=== PATIENT | male | born 1935 | race African-American/Black ===

== ENCOUNTER 2020-01-04 18:11 | Inpatient (IN) ==
[2020-01-04] MEDS ORDERED: ASPIRIN PO ONE (19:20)
--- NOTE | 2020-01-04 19:55 | Diag Imaging Result Doc PS360 ---
EXAM: CHEST-2 VIEWS - 01/04/2020 HISTORY: SOB TECHNIQUE: Chest two views COMPARISON: None. FINDINGS: There is cardiomegaly. There are COPD changes with mildly hyperexpanded lungs. There is apparent mild infiltrate at the posterior base of chest. There is a tiny right pleural effusion. IMPRESSION: Cardiomegaly. COPD. Mild infiltrate at posterior base of chest. Tiny right pleural effusion. Electronically signed by Percy Rodriguez 01/04/2020 7:52 PM
[2020-01-04 20:04] LABS: INR 1.06
[2020-01-04 20:05] LABS: PTT 29.9 Seconds (22.3-41.8)
[2020-01-04 20:06] LABS: BASO# 0.01 X1000 (0.0-0.2); BASO% 0.1 % (0.0-0.8); EOS# 0.03 X1000 (0.0-0.7); EOS% 0.4 % (0.0-10.0); HEMATOCRIT 43.2 % (42.0-52.0); HEMOGLOBIN 13.8 g/dL (14.0-18.0); LYMPH# 1.62 X1000 (1.2-3.4); LYMPH% 24.2 % (20.5-51.1); MCH 28.3 PG (27-31); MCHC 31.9 g/dL (33-37); MCV 88.7 FL (81-99); MONO# 0.69 X1000 (0.11-0.59); MONO% 10.3 % (1.7-9.3); MPV 11.7 FL (7.4-10.4); NEUT# 4.34 X1000 (1.4-6.5); PLT 146 X1000 (130-400); RBC 4.87 XMIL (4.7-6.1); RDW 17.8 % (11.5-14.5); WBC 6.69 X1000 (4.8-10.8)
[2020-01-04 20:22] LABS: AGAP 11; ALB/GLOB RATIO 1.2; ALBUMIN 3.7 g/dL (3.5-5.0); ALKALINE PHOSPHATASE 105 U/L (32-122); BUN 23 mg/dL (8-22); CALCIUM 8.4 mg/dL (8.8-10.2); CHLORIDE 104 mmol/L (98-107); COSMO 287; CREATININE 0.9 mg/dL (0.7-1.2); ESTIMATED GFR > 60; GLUCOSE 103 mg/dL (70-104); GOT 43 U/L (10-34); GPT 45 U/L (10-44); POTASSIUM 4.7 mmol/L (3.5-5.1); SODIUM 142 mmol/L (136-145); TCO2 27 mmol/L (25-35); TOTAL BILIRUBIN 0.33 mg/dL (0.20-1.00); TOTAL PROTEIN 6.8 g/dL (6.3-8.3)
[2020-01-04 20:23] LABS: CK PROFILE 276 U/L (24-204)
[2020-01-04] MEDS ORDERED: LASIX IV ONE (20:27)
[2020-01-04] MEDS ORDERED: LEVAQUIN 500 MG/D5W 500 MG/100 ML IVPB IV ONE (20:34)
--- NOTE | 2020-01-04 20:40 | PROVIDER DOCUMENTATION ---
This chart was entered by Carly Borrego Scribe, acting as scribe for Russ Alatorre MD. HPI-Respiratory General - General Chief Complaint: Edema Stated Complaint: EDEMA, SHAKING, BACK PAIN Time Seen by Provider: 01/04/20 20:21 Source: patient - History of Present Illness-Resp Nature of Presenting Problem: 84 yobm presents w/family to er w/cc sob and bilat LE edema starting . pt has never had edema before. pt also reports urinary freq w/very little output ongoing for few weeks. pt pcp is Dr. Esparza and sts he has not been to see him in about 7 yrs. denies medical hx. no allergies. pt quit smoking 3 months ago. Quality of Pain: reports: none Severity in ED: reports: mild Onset/Duration: reports: 4 days ago, other (urinary freq and little output started few weeks ago.) Timing: reports: still present Exposure: reports: unknown cause Cough Quality/Degree: reports: no cough Current Respiratory Medication Therapy: Initiated none Modifying Factors: improves with: nothing Associated Symptoms: reports: shortness of breath, other (BLE edema) Similar Symptoms Previously?: No Review of Systems - Adult - REVIEW OF SYSTEMS - ADULT Constitutional: reports: no symptoms reported. denies: fever, fatique, night sweats Eyes: reports: no symptoms reported Ears, Nose, Mouth & Throat: reports: no symptoms reported Cardiovascular: reports: see HPI, edema (bilat LE). denies: chest pain, palpitations, poor circulation, syncope Respiratory: reports: see HPI, shortness of breath. denies: hemoptysis, pleurisy, wheezing Gastrointestinal: reports: no symptoms reported Genitourinary: reports: see HPI, frequency, other (little output) Musculoskeletal: reports: no symptoms reported Integumentary: reports: no symptoms reported Neurological: reports: no symptoms reported Psychiatric: reports: no symptoms reported Endocrine: reports: no symptoms reported Hematologic/Lymphatic: reports: no symptoms reported Allergic/Immunologic: reports: no symptoms reported All Other Systems: Reviewed and Negative Past History - Adult - PAST MEDICAL HISTORY-ADULT Review of Records: reports: Nursing Assessment Review, Medications Reviewed, Social history reviewed & non-contributory. Major Childhood Illnesses: reports: denies history Cardiovascular: reports: denies history Respiratory: reports: denies history Gastrointestinal: reports: denies history Obstetrical/Gynecological: reports: denies history Genitourinary: reports: denies history Musculoskeletal: reports: denies history Neurological: reports: denies history Endocrine/Immune: reports: denies history Other Conditions: reports: denies history - IMMUNIZATION STATUS Childhood Immunizations: See Nurse Assessment Flu Vaccine: See Nurse Assessment - FAMILY HISTORY Family History: reviewed, not pertinent - SOCIAL HISTORY Smoking: quit less than 1 year Substance Use: none/never Physical Exam-General - PHYSICAL EXAM-ADULT Initial Vital Signs Reviewed: Yes - CONSTITUTIONAL General Appearance: alert, no apparent distress. negative: lethargic, slow to respond, obtunded - EYES Eyes: PERRL/EOMI - HEAD, EARS, NOSE, MOUTH & THROAT HENMT: normocephalic/atraumatic, moist mucous membranes - NECK Neck: non-tender, full range of motion, supple, normal inspection - RESPIRATORY Respiratory: chest non-tender, lungs clear, normal breath sounds, no pleuratic chest pain, no respiratory distress, no accessory muscle use. negative: rhonchi, stridor, wheezing - CARDIOVASCULAR Cardiovascular: normal peripheral pulses, regular rate, rhythm, no gallop, no JVD, no murmur, irregularly irregular. negative: no edema, extra beats, friction rub, PMI displaced laterally - GASTROINTESTINAL (ABDOMEN) Abdominal Exam: normal bowel sounds, non tender, soft - LYMPHATIC Lymphatic: no adenopathy - MUSCULOSKELETAL Back Exam: normal inspection Extremity: normal range of motion, non-tender, no calf tenderness, normal capillary refill, pelvis stable, swelling (BLE pitting +2). negative: normal inspection, abnormal NV exam, pulse deficit, slow capillary refill, tenderness Peripheral Pulses: carotid (R): 2+ - SKIN Integumentary: normal color, normal turgor, warm/dry - NEUROLOGIC Neurologic: grossly normal, no motor/sensory deficits - PSYCHIATRIC Psych/Mental Status: normal mood/affect, normal thought content, normal thought process, oriented x 3 Progress - PLAN OF CARE/RESULTS Progress/Plan/Lab Results: Vital Signs - 8 hr 01/04/20 18:40 Temperature 98.3 F Pulse Rate 111 H Respiratory Rate 18 Blood Pressure 154/103 O2 Sat by Pulse Oximetry 95 Laboratory Results - last 24 hr 01/04/20 01/04/20 01/04/20 18:56 18:56 18:56 WBC RBC Hgb Hct MCV MCH MCHC RDW Std Deviation Plt Count MPV Immature Gran % (Auto) Neut % (Auto) Lymph % (Auto) Bell % (Auto) Eos % (Auto) Baso % (Auto) Immature Gran # (Auto) Neut # (Auto) Lymph # (Auto) Bell # (Auto) Eos # (Auto) Baso # (Auto) PT INR PTT (Actin FS) Sodium 142 Potassium 4.7 Chloride 104 Carbon Dioxide 27 Anion Gap 11 BUN 23 H Creatinine 0.9 Estimated GFR/1.73 m2 > 60 BUN/Creatinine Ratio 26 Glucose 103 Calculated Osmolality 287 Calcium 8.4 L Total Bilirubin 0.33 AST 43 H ALT 45 H Alkaline Phosphatase 105 Creatine Kinase 276 H Troponin T High Sens Ekj-A-Sqnwjrlqync Pept 4004 H Total Protein 6.8 Albumin 3.7 Globulin 3.1 Albumin/Globulin Ratio 1.2 Plasma Lactate 1.0 01/04/20 01/04/20 01/04/20 18:56 18:56 18:56 WBC 6.69 RBC 4.87 Hgb 13.8 L Hct 43.2 MCV 88.7 MCH 28.3 MCHC 31.9 L RDW Std Deviation 17.8 H Plt Count 146 MPV 11.7 H Immature Gran % (Auto) 0.0 Neut % (Auto) 65.0 Lymph % (Auto) 24.2 Bell % (Auto) 10.3 H Eos % (Auto) 0.4 Baso % (Auto) 0.1 Immature Gran # (Auto) 0.00 Neut # (Auto) 4.34 Lymph # (Auto) 1.62 Bell # (Auto) 0.69 H Eos # (Auto) 0.03 Baso # (Auto) 0.01 PT 14.0 INR 1.06 PTT (Actin FS) 29.9 Sodium Potassium Chloride Carbon Dioxide Anion Gap BUN Creatinine Estimated GFR/1.73 m2 BUN/Creatinine Ratio Glucose Calculated Osmolality Calcium Total Bilirubin AST ALT Alkaline Phosphatase Creatine Kinase Troponin T High Sens 44 H Ekk-O-Ynkkfsrdecq Pept Total Protein Albumin Globulin Albumin/Globulin Ratio Plasma Lactate Orders Category Date Time Status Cardiac Monitoring DIRECTED Care 01/04/20 19:20 Active NEWS Score 2-4:Order NEWS Lactate Series NOW Care 01/04/20 19:19 Active Oxygen Therapy- ED Nursing DIRECTED Care 01/04/20 19:20 Active Saline Loc NOW Care 01/04/20 19:20 Active CHEST-2 VIEWS [RAD] Stat Exams 01/04/20 19:20 Completed BLOOD CULTURE [BLDCUL] Stat Lab 01/04/20 20:34 Uncollected CBC WITH ELECTRONIC DIFF [HEME] Stat Lab 01/04/20 18:56 Completed CK PROFILE [SP CHEM] Stat Lab 01/04/20 18:56 Results COMPREHENSIVE METABOLIC PANEL [CHEM] Stat Lab 01/04/20 18:56 Results LACTATE, PLASMA [CHEM] Q3H Lab 01/04/20 18:56 Completed LACTATE, PLASMA [CHEM] Q3H Lab 01/04/20 22:30 Uncollected LACTATE, PLASMA [CHEM] Q3H Lab 01/05/20 01:30 Uncollected PRO B-NATRIURETIC PEPTIDE Stat Lab 01/04/20 18:56 Completed PROTIME WITH INR [COAG] Stat Lab 01/04/20 18:56 Completed PTT [COAG] Stat Lab 01/04/20 18:56 Completed TROPONIN T HIGH SENSITIVITY Stat Lab 01/04/20 18:56 Completed UA [URINALYSIS W/POSS RFLX CULT] [URINALYSIS] Stat Lab 01/04/20 20:27 Uncollected Aspirin Med 01/04/20 19:20 Discontinued 325 mg PO NOW ONE Furosemide [Lasix] Med 01/04/20 20:27 Discontinued 40 mg IV NOW ONE Levaquin 500 mg/D5w IV Now Med 01/04/20 20:34 Ordered Levofloxacin 500 mg/D5w [Levaquin 500 mg/D5w] 500 mg in 100 ml IV NOW CP/SOB/Palp >45 yrs of Age Stat Oth 01/04/20 19:20 Ordered EKG [EKG] Stat Ther 01/04/20 19:20 Ordered Result Diagrams: 01/04/20 18:56 01/04/20 18:56 - EKG 1 Time of EKG reading by physician:: 18:51 EKG Read and Signed by:: Russ Alatorre EKG Interpretation (*Must complete 3 of following elements*): Abnormal Rate: 109 Rhythm: Sinus tachycardia w/ PSCs Spade: right QRS: normal TX Interval: normal ST Wave: non-specific ST changes (ST & T wave abnormality, consider inferolaeral ischemia) - XRAY 1 XRAY Study: Chest Impression: Abnormal, See EMR Report (EXAM: CHEST-2 VIEWS - 01/04/2020 HISTORY: SOB TECHNIQUE: Chest two views COMPARISON: None. FINDINGS: There is cardiomegaly. There are COPD changes with mildly hyperexpanded lungs. There is apparent mild infiltrate at the posterior base of chest. There is a tiny right pleural effusion. IMPRESSION: Cardiomegaly. COPD. Mild infiltrate at posterior base of chest. Tiny right pleural effusion. Electronically signed by Percy Rodriguez 01/04/2020 7:52 PM) Comparison with other Films: no prior study - CONSULTS/PCP/HOSPITALIST Notification #1 *Consult/PCP/Hospitalist*: Dr. Almodovar Time Discussed: 20:33 Consult Disposition: Admit (Order levaquin, diaresum and rocehpin for pt) Departure - Departure Date of Disposition Decision: 01/04/20 Time of Disposition Decision: 20:36 DIAGNOSIS: CHF (congestive heart failure), COPD (chronic obstructive pulmonary disease), Edema, SOB (shortness of breath) Disposition: ADMITTED INPATIENT 09 Certified Medical Emergency: Emergent Condition: Fair Referrals and Follow-Ups: Nic Esparza MD [Primary Care Provider] - - Critical Care Note This patient required my direct & personal management of CC.: No Attestation - Physician/ NISH Attestation Patient care was provided by Advanced Practice Provider:: No The physician spent face to face time with patient:: Yes Advanced Practice Provider documentation review:: Supervising physician onsite and consulted in the evaluation and care of this patient. The physician did have a face to face encounter with the patient. This chart was documented by the indicated scribe, (Carly Borrego Scribe) and accurately reflects the services I performed and decisions made by me, Russ Alatorre MD, as attested by the provider's signature.
[2020-01-04 20:43] LABS: CK INDEX 2.3 (0.0-2.5); CK-MB 6.24 ng/mL (0.0-5.0)
--- NOTE | 2020-01-04 20:47 | EKG Report ---
Test Performed on : 01/04/2020 6:51:45 PM Test Reason : SOB Blood Pressure : / mmHG Vent. Rate : 109 BPM Atrial Rate : 109 BPM P-R Int : 162 ms QRS Dur : 104 ms QT Int : 356 ms P-R-T Axes : 083 098 -86 degrees QTc Int : 479 ms Sinus tachycardia. with premature supraventricular complexes. Rightward axis ST & T wave abnormality, consider inferolateral ischemia Abnormal ECG No previous ECGs available Unconfirmed Result
--- NOTE | 2020-01-04 21:39 | HISTORY AND PHYSICAL ---
PRIMARY CARE PHYSICIAN: Dr. Nic Esparza. CHIEF COMPLAINT: Shortness of breath for 4 days. HISTORY OF PRESENTING ILLNESS: An 84-year-old elderly male with a history of COPD, presented to emergency department with 4 days history of having persistent shortness of breath. The patient states that during this time he was also having lower extremity edema. The patient states that he was not feeling well and subsequently had come to the emergency department. At ED he was evaluated. He had laboratories drawn which did show elevated proBNP. His x-rays also were consistent with COPD. Due to his presenting symptoms, he will require admission for further management. At the time of my examination, patient denied any headache, fever, chills, nausea, vomiting, diarrhea, hemoptysis, melena, but complained of shortness of breath and lower extremity edema. PAST MEDICAL HISTORY: Includes COPD. PAST SURGICAL HISTORY: Back surgery, stomach ulcer repair. ALLERGIES: No known drug allergies. CURRENT MEDICATIONS: None. SOCIAL HISTORY: He is a former heavy smoker. He states that he now just smokes Black and Milds occasionally. Denies any history of alcohol or illicit drug use. FAMILY HISTORY: No history of coronary disease. REVIEW OF SYSTEMS: Fourteen point review of system is as in HPI. Other systems negative. PHYSICAL EXAMINATION: GENERAL: Cooperative, friendly male. He is resting comfortably now. VITAL SIGNS: Temperature 98.3 degrees, pulse 111, respiration 18, blood pressure 154/103. HEENT: Atraumatic, normocephalic. Extraocular movements intact. PERRLA. NECK: No masses. CHEST: Scattered wheezes. CARDIOVASCULAR: Regular rate and rhythm. ABDOMEN: Soft. Positive bowel sounds. EXTREMITIES: +1 edema. NEUROLOGIC: He is awake, alert, oriented x3. : No bladder distention. SKIN: Warm. LABORATORIES AND STUDIES: WBC 6.69, hemoglobin 13.8, hematocrit 43.2, platelets 146,000. Sodium 142, potassium 4.7, chloride 104, CO2 is 27, BUN is 23, creatinine 0.9, glucose is 103. ProBNP is 4004. Chest x-ray shows cardiomegaly, COPD, mild infiltrate at the posterior base. ASSESSMENT: This 84-year-old elderly male with a history of chronic obstructive pulmonary disease had presented to emergency department with 4 days history of worsening shortness of breath. He was also having lower extremity edema. He was evaluated in the emergency department. He is found to have elevated BNP. He was given diuresis with Lasix. He had some mild improvement. However, due to his presenting symptoms, he will require admission for further management. 1. Acute chronic obstructive pulmonary disease exacerbation. 2. Elevated BNP with suspected congestive heart failure unspecified. 3. Ongoing tobacco abuse. 4. Suspected pneumonia. PLAN: 1. We will admit patient to medical floor with telemetry. 2. Continue DuoNebs, IV Solu-Medrol, IV antibiotics. 3. The patient was given diuresis and Lasix. 4. We will check echocardiogram. 5. We will check blood cultures and continue with antibiotics. 6. Put patient on DVT prophylaxis with Lovenox. 7. We will continue to follow and reassess, make further recommendation based on patient's clinical course. cc: Jono Almodovar MD
[2020-01-04] MEDS ORDERED: ZOFRAN IV PRN (22:38)
[2020-01-04 23:10] LABS: URINE SOURCE CLEAN CATCH
[2020-01-04 23:23] LABS: BILIRUBIN URINE NEGATIVE (NEGATIVE); BLOOD URINE SMALL (NEGATIVE); COLOR YELLOW; GLUCOSE URINE NEGATIVE (NEGATIVE); KETONE URINE NEGATIVE (NEGATIVE); LEUKOCYTES URINE LARGE (NEGATIVE); NITRITE URINE NEGATIVE (NEGATIVE); PROTEIN URINE TRACE mg/dL (NEGATIVE); SP GRAVITY URINE 1.014; TURBIDITY URINE HAZY (CLEAR); UR EPITHELIAL CELLS <10 /HPF (<10); URINE BACTERIA 3+ /HPF; URINE RBC <10 /HPF (<10); URINE WBC TNTC /HPF (<10); UROBILINOGEN URINE NORMAL (NORMAL)
[2020-01-04] MEDS: LOVENOX SUBQ SCH (23:38)
[2020-01-04] MEDS: SOLU-MEDROL IV SCH (23:38)
--- NOTE | 2020-01-05 01:38 | EKG Report ---
Test Performed on : 01/05/2020 00:20:38 AM Test Reason : change in rhythm Blood Pressure : / mmHG Vent. Rate : 132 BPM Atrial Rate : 132 BPM P-R Int : 100 ms QRS Dur : 104 ms QT Int : 340 ms P-R-T Axes : 066 086 268 degrees QTc Int : 503 ms Sinus tachycardia. with short OK with premature atrial complexes. ST & T wave abnormality, consider inferolateral ischemia Abnormal ECG When compared with ECG of 04-JAN-2020 18:51, (Unconfirmed) No significant change was found Confirmed by Maximiliano Ibrahim MD ([id number]) on 01/06/2020 9:52:05 PM
[2020-01-05] MEDS: DUONEB (A & A) INH SCH ×7 (03:48→22:58)
[2020-01-05] MEDS: SOLU-MEDROL IV SCH ×2 (07:31→14:27)
[2020-01-05 08:19] LABS: BASO# 0.01 X1000 (0.0-0.2); BASO% 0.1 % (0.0-0.8); HEMATOCRIT 47.5 % (42.0-52.0); HEMOGLOBIN 14.8 g/dL (14.0-18.0); LYMPH# 1.09 X1000 (1.2-3.4); LYMPH% 14.4 % (20.5-51.1); MCH 27.7 PG (27-31); MCHC 31.2 g/dL (33-37); MCV 88.8 FL (81-99); MONO# 0.11 X1000 (0.11-0.59); MONO% 1.5 % (1.7-9.3); MPV 11.9 FL (7.4-10.4); NEUT# 6.34 X1000 (1.4-6.5); PLT 164 X1000 (130-400); RBC 5.35 XMIL (4.7-6.1); RDW 17.8 % (11.5-14.5); WBC 7.55 X1000 (4.8-10.8)
[2020-01-05 08:50] LABS: AGAP 12; BUN 21 mg/dL (8-22); CALCIUM 9.2 mg/dL (8.8-10.2); CHLORIDE 101 mmol/L (98-107); COSMO 290; ESTIMATED GFR > 60; GLUCOSE 138 mg/dL (70-104); POTASSIUM 4.5 mmol/L (3.5-5.1); SODIUM 143 mmol/L (136-145); TCO2 30 mmol/L (25-35)
[2020-01-05] MEDS: TYLENOL PO PRN ×2 (14:25→20:57)
[2020-01-05] MEDS: LASIX IV SCH (17:14)
--- NOTE | 2020-01-05 17:24 | PROGRESS NOTE ---
DATE: 01/05/2020 SUBJECTIVE: Mr. Reyes is followed by Dr. Nic Esparza. He came in with shortness of breath for 4 days. An 84-year-old with history of COPD presented to the emergency department with a 4- day history of having persistent shortness of breath. The patient states that during this time he was also having extremity edema. The patient states that he is not feeling well and subsequently came to the emergency room. In the emergency room he was evaluated. Laboratories drawn and showed an elevated proBNP. X-rays were consistent with COPD so he is admitted to the hospital. PAST MEDICAL HISTORY: COPD, back surgeries, stomach ulcer repair. His family states they have noticed he has had increased dyspnea with exertion for a couple of months really. He would state about a month. He has ongoing tobacco use, and there was suspected possible pneumonia, although clinically does not sure he had any pneumonia. PHYSICAL EXAMINATION: General: Today, he is awake and alert. States his breathing seems better. Vital signs: Temperature 97.6 degrees, pulse 98, respirations 16, blood pressure 177/104. Last several blood pressures 154/103, 139/84, 177/104. Urine output was 5000 mL last night. ASSESSMENT AND PLAN: 1. Acute on chronic obstructive pulmonary disease exacerbation. 2. Elevated proBNP, suspect some congestive heart failure. I need to look at his left ventricular function. He has had some pedal edema. 3. Ongoing tobacco use. 4. I am treating for possible pneumonia, although clinically it does not look like it is pneumonia. His chest x-ray showed cardiomegaly, chronic obstructive pulmonary disease, mild infiltrate at the posterior base of the chest, tiny right pleural effusion. We will get an echocardiogram. He had a CT angiogram ordered. His lab was unremarkable. Electrolytes look good. Creatinine is 1.0. ProBNP was 4000 we will get an echocardiogram ordered and ask Cardiology to evaluate. cc: Emile Baldwin MD
[2020-01-05] MEDS: MOTRIN PO PRN (18:10)
[2020-01-05] MEDS: PRINIVIL PO SCH (20:55)
--- NOTE | 2020-01-05 21:12 | ECHO REPORT ---
ORDER DATE: 01/04/2020 MEASUREMENTS: Septal thickness 2.2, left ventricular internal diastole 4.5, left ventricular posterior wall thickness 1.8, left ventricular internal diameter in systole 3.8, aortic root 2.6, left atrium 5.3. SUMMARY: 1. Adequate quality study. 2. Aortic valve is trileaflet and opens normally on 2 dimensional images. Peak gradient across the aortic valve is less than 10 mmHg. Mitral, tricuspid and pulmonic valves are without evidence of structural abnormality with mild to moderate mitral regurgitation and mild tricuspid regurgitation. The estimated systolic PA pressure by Doppler is 40 mmHg suggesting mild pulmonary hypertension. Aortic root is normal in size. 3. Normal left ventricular chamber size with severe concentric left hypertrophy is demonstrated. Appearance of myocardium suggests the possibility of amyloidosis. Estimated left ejection fraction is approximately 35% in the setting of global hypokinesis. Moderate biatrial enlargement is demonstrated. The right ventricle is grossly normal in size with grossly preserved right ventricular systolic function. 4. No pericardial effusion. 5. Inferior vena cava not well demonstrated. CONCLUSIONS: 1. Mild to moderate mitral regurgitation. 2. Mild tricuspid regurgitation with estimated systolic PA pressure 40 mmHg. 3. Severe concentric left hypertrophy with estimated left ejection fraction approximately 35%. Appearance of myocardia suggest possibility of amyloidosis. 4. Moderate biatrial enlargement. cc: MD Jono Mirnada MD
[2020-01-05] MEDS: LOVENOX SUBQ SCH (22:50)
[2020-01-05] MEDS: LEVAQUIN 250 MG/D5W 250 MG/50 ML IVPB IV SCH (22:50)
[2020-01-06] MEDS: DUONEB (A & A) INH SCH ×6 (03:26→23:09)
[2020-01-06] MEDS: LASIX IV SCH ×2 (06:12→17:09)
[2020-01-06] MEDS: PRINIVIL PO SCH ×2 (08:18→20:58)
[2020-01-06] MEDS: TYLENOL PO PRN (08:18)
[2020-01-06] MEDS: MOTRIN PO PRN (10:43)
--- NOTE | 2020-01-06 11:38 | PROGRESS NOTE ---
DATE: 01/06/2020 SUBJECTIVE: The patient is sitting at the bedside and he is short of breath and having back pain and lower abdominal pain. He has anasarca. He states that he does not have any medical history other than possible hypertension on and off but he has not been taking any kind of treatment at home. He does have high blood pressure, he does have heart failure with an ejection fraction of 35% and also some pulmonary hypertension. He had a strong history of smoking a pack a day for 60 years. He has been retaining urine. I will place a Dodge. OBJECTIVE: Vital Signs: Temperature 97.9 degrees, pulse 58, respiratory rate 22, blood pressure 160/111, oxygen saturation 92 on 2 L of nasal cannula. HEENT: Head normocephalic, no trauma. PERRLA. Neck: Supple. He does have JVD. Central trachea. Chest: Some crepitus at the bases, a prolonged expiratory phase with some end faint expiratory wheezing. Abdomen: Soft. Abdominal wall edema. Tenderness to palpation at the level of the lower abdomen and back. Extremities: 3+ lower extremity edema all the way up to the thigh. No clubbing, no cyanosis. Neurological: Patient is awake, alert, he is oriented x3. No focal deficits. LABORATORY DATA: Pending CMP today. ASSESSMENT AND PLAN: 1. Congestive heart failure exacerbation. This patient has some fluid overload. He has anasarca, elevated proBNP, ejection fraction of 35% and also he has pulmonary hypertension. Probably this is a combined problem systolic and diastolic heart failure. I will ask Cardiology Department to evaluate this patient. I will put this patient on carvedilol, I will start with 6.25 mg every 12 hours. I will continue with Lasix 40 mg IV q.12 hours and lisinopril as well. I will place a Dodge catheter. 2. Possible chronic obstructive pulmonary disease. As per the patient and the family member at the bedside, his daughter, he has been wheezing before and actually yesterday he was wheezing. Today he has end-expiratory wheezing and he has prolonged expiratory phase also. He should follow up with Pulmonary Department as an outpatient, but in the meantime, we will continue with breathing treatment, and oxygen supplementation as needed. 3. Hypertension. He has been placed on lisinopril and carvedilol. Let us see how he does. We will keep an eye on him. Cardiology has been consulted. 4. Tobacco abuse. Apparently he stop smoking a couple years ago. Apparently, he smoked 1 pack a day for 60 years. 5. Constipation. I have placed this patient on suppositories and MiraLAX as well. 6. Urinary retention. I will place a Dodge catheter to see how he does. Probably he has some BPH as well. I will check this patient today to see how he does on the floor but probably I will need to transfer this patient to the PVC unit. I will wait for Cardiology Department evaluation and recommendations as well. cc: Saul Duran MD
[2020-01-06] MEDS: DULCOLAX PR SCH ×2 (12:14→20:58)
[2020-01-06] MEDS: COREG PO SCH ×2 (12:14→20:58)
[2020-01-06] MEDS: MIRALAX PO SCH ×2 (12:15→20:57)
[2020-01-06 12:29] LABS: AGAP 15; ALBUMIN 3.6 g/dL (3.5-5.0); ALKALINE PHOSPHATASE 87 U/L (32-122); BUN 32 mg/dL (8-22); CHLORIDE 100 mmol/L (98-107); COSMO 290; CREATININE 1.1 mg/dL (0.7-1.2); ESTIMATED GFR > 60; GLUCOSE 107 mg/dL (70-104); GOT 45 U/L (10-34); GPT 40 U/L (10-44); POTASSIUM 4.2 mmol/L (3.5-5.1); SODIUM 142 mmol/L (136-145); TCO2 27 mmol/L (25-35); TOTAL BILIRUBIN 0.53 mg/dL (0.20-1.00); TOTAL PROTEIN 7.1 g/dL (6.3-8.3)
--- NOTE | 2020-01-06 14:11 | EKG Report ---
Test Performed on : 01/06/2020 2:00:30 PM Test Reason : tachycardia Blood Pressure : / mmHG Vent. Rate : 093 BPM Atrial Rate : 093 BPM P-R Int : 150 ms QRS Dur : 106 ms QT Int : 392 ms P-R-T Axes : 071 072 238 degrees QTc Int : 487 ms Sinus rhythm. with premature atrial complexes. Incomplete left bundle branch block Left ventricular hypertrophy with repolarization abnormality Prolonged QT Abnormal ECG When compared with ECG of 05-JAN-2020 00:20, (Unconfirmed) No significant change was found Confirmed by Maximiliano Ibrahim MD ([id number]) on 01/07/2020 7:22:09 PM
[2020-01-06] MEDS: FLOMAX PO SCH (15:47)
[2020-01-06 18:33] LABS: HEMATOCRIT 42.2 % (42.0-52.0); HEMOGLOBIN 13.5 g/dL (14.0-18.0)
--- NOTE | 2020-01-06 18:44 | CONSULTATION ---
DATE OF CONSULTATION: 01/06/2020 IMPRESSION: 1. Acute on probably chronic congestive heart failure predominantly right-sided. Underlying etiology probably mixed systolic and diastolic dysfunction on the left ventricle with echocardiography showing severe left ventricular hypertrophy, possible amyloidosis and left ventricular ejection fraction approximately 30%. 2. COPD. RECOMMENDATIONS.: 1. Continue diuresis as you are doing. 2. Agree with continuation of carvedilol and lisinopril as tolerated. HISTORY: This 84-year-old -[place] male with very little past medical history who has generally not sought medical care was admitted with tendency for shortness of breath and major complaint of increasing lower extremity swelling. He relates occasionally having shortness of breath over the past month or so. He has had progressive edema for the past week has also started to develop some scrotal edema. Because of this he came to emergency room and is found to have objective evidence of congestive heart failure. He has been started on diuretic therapy. Echocardiography demonstrated the above results. Cardiology was consulted. He denies orthopnea. There is no history of angina or coronary disease. He denies history of hypertension. PAST MEDICAL HISTORY: COPD. PAST SURGICAL HISTORY: Unspecified back surgery and unspecified stomach ulcer repair. ALLERGIES: No known drug allergies. CURRENT MEDICATIONS PRIOR TO ADMISSION: None. SOCIAL HISTORY: He previously smoked heavily for many years over 50 years. He does not currently use alcohol. FAMILY HISTORY: Negative for coronary disease. REVIEW OF SYSTEMS: Pulmonary: Noncontributory beyond history of present illness. Gastrointestinal: Noncontributory beyond history of present illness. Constitutional: Noncontributory beyond history of present illness. Remainder review of systems negative/noncontributory beyond history present illness with 14 total systems reviewed. PHYSICAL EXAMINATION: A elderly -Cuban male in no distress. Blood pressure 123/73, heart rate 104 beats a minute with ECG monitor showing sinus rhythm. Oxygen saturation 98% on nasal cannula oxygen at 2 L/minute. Jugular venous distention is present suggesting significantly elevated central venous pressure. There are no carotid bruits.Chest: Auscultation of the chest reveals diminished breath sounds diffusely. Cardiac: Reveals a regular rate and rhythm without appreciable murmur or gallop. Abdomen: Soft. Bowel sounds are normal. Extremities: Demonstrate 2+ to 3+ pitting edema to above the knee. Neurologic: Alert and fully oriented. Speech fluent. Moves all 4 extremities equally well. Skin: Warm, dry. Psychiatric: Reveals mood to be appropriate. DATA: Twelve lead EKG demonstrates sinus tachycardia with occasional premature ventricular complex, left atrial abnormality, rightward axis and diffuse nonspecific T-wave abnormality. LABORATORY DATA: Includes white blood cell count 7.55, hematocrit 47.5, hemoglobin 14.8, platelet count 164,000. Sodium 142, potassium 4.2, chloride 100, carbon dioxide 27, BUN 32, creatinine 1.1. Glucose 107, AST 45, ALT 40. CPK 276, CPK/MB 6.24, CPK/MB index 2.3, troponin T high- sensitivity 44. Pro B-natriuretic peptide level 4004. Total protein 7.1, albumin 3.6. cc: Gil Higgins MD
[2020-01-06] MEDS: ULTRAM PO PRN (20:58)
[2020-01-06] MEDS: LEVAQUIN 250 MG/D5W 250 MG/50 ML IVPB IV SCH (22:42)
[2020-01-07] MEDS: DUONEB (A & A) INH SCH ×6 (03:34→22:30)
[2020-01-07] MEDS: LASIX IV SCH ×2 (05:42→17:20)
[2020-01-07 05:52] LABS: BASO# 0.02 X1000 (0.0-0.2); BASO% 0.3 % (0.0-0.8); EOS# 0.02 X1000 (0.0-0.7); EOS% 0.3 % (0.0-10.0); HEMATOCRIT 40.5 % (42.0-52.0); LYMPH# 1.77 X1000 (1.2-3.4); LYMPH% 22.8 % (20.5-51.1); MCH 28.2 PG (27-31); MCHC 32.1 g/dL (33-37); MCV 87.9 FL (81-99); MONO# 0.72 X1000 (0.11-0.59); MONO% 9.3 % (1.7-9.3); MPV 11.9 FL (7.4-10.4); NEUT# 5.22 X1000 (1.4-6.5); NEUT% 67.3 % (42.2-75.2); PLT 144 X1000 (130-400); RBC 4.61 XMIL (4.7-6.1); RDW 17.4 % (11.5-14.5); WBC 7.75 X1000 (4.8-10.8)
[2020-01-07 06:36] LABS: AGAP 9; ALB/GLOB RATIO 1.1; ALBUMIN 3.1 g/dL (3.5-5.0); ALKALINE PHOSPHATASE 70 U/L (32-122); BUN 32 mg/dL (8-22); CALCIUM 8.6 mg/dL (8.8-10.2); CHLORIDE 101 mmol/L (98-107); COSMO 288; ESTIMATED GFR > 60; GLUCOSE 95 mg/dL (70-104); GOT 34 U/L (10-34); GPT 31 U/L (10-44); POTASSIUM 4.2 mmol/L (3.5-5.1); SODIUM 141 mmol/L (136-145); TCO2 31 mmol/L (25-35); TOTAL BILIRUBIN 0.58 mg/dL (0.20-1.00); TOTAL PROTEIN 5.9 g/dL (6.3-8.3)
--- NOTE | 2020-01-07 07:09 | Diag Imaging Result Doc PS360 ---
EXAM: CHEST-PORTABLE 01/07/2020 HISTORY: dyspnea TECHNIQUE: AP portable at 0552 COMMENT: There is cardiomegaly and increased pulmonary vascularity. The inspiration is less optimal than on 01/04/2020. Considering differences in technique there has been no appreciable change otherwise. IMPRESSION: Cardiomegaly. Electronically signed by Mario Alberto Aden 01/07/2020 7:07 AM
[2020-01-07] MEDS: PRINIVIL PO SCH ×2 (08:38→20:49)
[2020-01-07] MEDS: COREG PO SCH ×2 (08:38→20:49)
[2020-01-07] MEDS: FLOMAX PO SCH (08:38)
[2020-01-07] MEDS: MIRALAX PO SCH ×2 (08:39→20:49)
[2020-01-07] MEDS: DULCOLAX PR SCH ×2 (08:41→20:49)
--- NOTE | 2020-01-07 14:17 | PROGRESS NOTE ---
DATE: 01/07/2020 SUBJECTIVE: The patient seems to be feeling much better today. He had gross hematuria after placing a Dodge catheter yesterday but seems to be resolving. His hemoglobin is stable. He is breathing better, he still has anasarca. Continue with same management. So far, he had a negative balance of 8 L. OBJECTIVE: Vital Signs: Temperature 98.2 degrees, pulse 81, respiratory rate 19, blood pressure 95/65, oxygen saturation 97% on room air. HEENT: Head normocephalic, no trauma. PERRLA. Neck: Supple. He does have JVD. Central trachea. Chest: Some crepitus at the bases, prolonged expiratory phase with some mild end-expiratory wheezing. Abdomen: Soft. Abdominal wall edema. Tenderness to palpation at the level of the lower abdomen and back but just mild. Extremities: 3+ lower extremity edema all the way up to the thigh, no clubbing, no cyanosis. Neurological: The patient is awake, alert. He is oriented x3. No focal deficits. LABORATORY DATA: WBC 7.7, hemoglobin 13, hematocrit 40.5, platelet count 144,000. Sodium 141, potassium 4.2, chloride 101, bicarbonate 31, BUN 32, creatinine 1, glucose 95, calcium 8.6. Magnesium 2, phosphorus 4. AST 34, ALT 31, alkaline phosphatase 70, albumin 3.1. TSH 3. ASSESSMENT AND PLAN: 1. Congestive heart failure exacerbation, systolic. He does have an ejection fraction of 35% and also pulmonary hypertension. I will continue with the same management for now. Cardiology Department evaluated this patient. Continue with the same treatment. He seems to be improving. 2. Possible chronic obstructive pulmonary disease. As per the patient and the family, he has never been diagnosed with chronic obstructive pulmonary disease but he used to be a heavy smoker a long time ago. He probably should follow up with Pulmonary Department as an outpatient. In the meantime, we will continue with breathing treatments, oxygen supplementation as needed. 3. Hypertension. Continue with the same management. He seems to be stable. 4. Constipation. I have placed this patient on MiraLAX and suppositories as well. 5. Gross hematuria, likely traumatic. This is getting better. 6. Tobacco abuse. Apparently he stop smoking a couple years ago and he used to smoke 1 pack a day for 60 years. 7. Urinary retention, status post Dodge catheter placement. Probably he has some benign prostatic hypertrophy as well. I put this patient on Flomax. I will continue to monitor. In a few days, I will remove the Dodge to see if he is going to be able to void by himself. Otherwise, he will need to follow up with Urology Department as an outpatient. cc: Saul Duran MD
--- NOTE | 2020-01-07 19:21 | CARDIOLOGY PROGRESS NOTE ---
DATE: 01/07/2020 SUBJECTIVE: Patient denies chest discomfort or shortness of breath, on supplemental oxygen per nasal cannula. He appears to be diuresing well based on intake and output recording. OBJECTIVE: Blood pressure 123/79, heart rate 100, oxygen saturation 95% on nasal cannula. Jugular distention is evident suggesting mild elevation of central venous pressure. Chest: Clear to auscultation bilaterally. Cardiac: Regular rate and rhythm without appreciable murmur or gallop. Extremities: Pitting edema 2+ to 3+ to the level of the knees bilaterally. LABORATORY DATA: Includes a white blood cell count of 7.75, hematocrit 40.5, hemoglobin 13.0, platelet count 144,000. Sodium 141, potassium 4.2, chloride 101, carbon dioxide 31, BUN 32, creatinine 1.5, glucose 95, albumin 3.1. IMPRESSION: 1. Acute on probably chronic congestive heart failure. Currently right sided. 2. Cardiomyopathy with severe left ventricular hypertrophy and left ventricular ejection fraction of approximately 30%. Suspect combination of mixed systolic and diastolic dysfunction of the left ventricle. 3. Chronic obstructive pulmonary disease. RECOMMENDATIONS: 1. Continue diuresis as you are doing. 2. Continue carvedilol and lisinopril. 3. Check serum protein electrophoresis. cc: Gil Higgins MD
[2020-01-07] MEDS: LEVAQUIN 250 MG/D5W 250 MG/50 ML IVPB IV SCH (22:48)
[2020-01-07] MEDS: ULTRAM PO PRN (22:53)
[2020-01-08] MEDS: DUONEB (A & A) INH SCH ×6 (04:31→23:27)
[2020-01-08] MEDS: LASIX IV SCH ×2 (06:19→17:23)
[2020-01-08 09:18] LABS: AGAP 11; BUN 27 mg/dL (8-22); CALCIUM 8.8 mg/dL (8.8-10.2); CHLORIDE 94 mmol/L (98-107); COSMO 275; CREATININE 1.1 mg/dL (0.7-1.2); ESTIMATED GFR > 60; GLUCOSE 97 mg/dL (70-104); MAGNESIUM 1.9 mg/dL (1.5-2.7); PHOSPHORUS 3.6 mg/dL (2.7-4.5); POTASSIUM 3.9 mmol/L (3.5-5.1); SODIUM 135 mmol/L (136-145); TCO2 30 mmol/L (25-35)
[2020-01-08] MEDS: COREG PO SCH ×2 (10:26→21:33)
[2020-01-08] MEDS: MIRALAX PO SCH ×2 (10:26→21:33)
[2020-01-08] MEDS: PRINIVIL PO SCH ×2 (10:26→21:33)
[2020-01-08] MEDS: FLOMAX PO SCH (10:26)
[2020-01-08] MEDS: DULCOLAX PR SCH ×2 (10:27→21:33)
[2020-01-08] MEDS ORDERED: KLOR-CON PO ONE (10:46)
--- NOTE | 2020-01-08 14:15 | PROGRESS NOTE ---
DATE: 01/08/2020 SUBJECTIVE: No big changes compared with yesterday. He seems to be diuresing okay, having good, so far 10.8 L out. He is tolerating p.o. His urine is clear. No more hematuria. He is complaining of some tingling sensation on the hands, which is likely due to his treatment. OBJECTIVE: Vital signs: Temperature 99.2 degrees, pulse 79, respiratory rate 20, blood pressure 93/59, oxygen saturation 95% on 2 L of nasal cannula. HEENT: Head normocephalic, no trauma. PERRLA. Neck: Supple. He does has some JVD. Central trachea. Chest: Some crepitus at the bases, prolonged expiratory phase. Abdomen: Soft, abdominal wall edema, tenderness to palpation at the level of the lower abdomen. Extremities: 3+ lower extremity edema all the way up to the thigh. No clubbing, no cyanosis. Neurological examination: The patient is awake, alert. He is oriented x3. No focal deficits. LABORATORY: Sodium 135, potassium 3.9, chloride 94 bicarbonate 30, BUN 27, creatinine 1.1, glucose 97, calcium 8.8. ASSESSMENT AND PLAN: 1. Systolic congestive heart failure exacerbation, his ejection fraction is around 35% and also has pulmonary hypertension so probably this is a combined issue, Cardiology Department on board. Continue with same management. He seems to be improving and tolerating the treatment. 2. Possible chronic obstructive pulmonary disease, as per the patient and the family he does not have a history of chronic obstructive pulmonary disease, but he used to be a heavy smoker, probably he needs to follow up with Pulmonary Department as an outpatient. In the meantime, we will continue breathing treatment, oxygen supplementation as needed. 3. Hypertension. Continue with same management. He seems to be stable. 4. Constipation. Continue with same treatment. 5. Tobacco abuse. This patient apparently stopped smoking a couple years ago. He used to smoke a pack a day for 60 years. 6. Urinary retention status post Dodge catheter placement. Probably, he has some benign prostatic hypertrophy as well. This patient has been placed on Flomax. We will continue to monitor. In a few days, I will remove the Dodge to see if he is able to void by himself. Otherwise, will need to follow up with Urology Department as an outpatient. cc: Saul Duran MD
--- NOTE | 2020-01-08 19:56 | PROGRESS NOTE ---
DATE: 01/08/2020 SUBJECTIVE: Patient denies shortness of breath or chest discomfort. He appears to be diuresing well based on recorded I's and O's. OBJECTIVE: Vital Signs: Blood pressure 105/68, heart rate 85, oxygen saturation 99% on nasal cannula oxygen. Jugular venous distention is present consistent with mildly elevated central venous pressure. Chest is clear to auscultation bilaterally. Cardiac exam reveals a regular rate and rhythm without appreciable murmur or gallop. Extremities demonstrate 2+ pitting edema just below the level of the knees bilaterally. LABORATORY DATA: Includes sodium 135, potassium 3.9, chloride 94, carbon dioxide 30, BUN 27, creatinine 1.1, glucose 97. IMPRESSION: 1. Acute on probably chronic congestive heart failure, currently right-sided. 2. Cardiomyopathy with severely depressed left ventricular systolic function with left ventricular ejection fraction of 30% and severe left ventricular hypertrophy. Suspect combination of mixed systolic and diastolic dysfunction of the left ventricle. 3. Chronic obstructive pulmonary disease. RECOMMENDATIONS: 1. Continue diuresis at current rate. 2. Continue carvedilol and lisinopril. 3. Follow up serum protein electrophoresis result. cc: Gil Higgins MD
[2020-01-08] MEDS: LEVAQUIN 250 MG/D5W 250 MG/50 ML IVPB IV SCH (21:33)
[2020-01-09] MEDS: LOVENOX SUBQ SCH ×2 (02:02→23:00)
[2020-01-09] MEDS: DUONEB (A & A) INH SCH ×6 (03:05→23:11)
[2020-01-09] MEDS: LASIX IV SCH ×2 (05:04→17:41)
[2020-01-09 07:55] LABS: AGAP 8; BUN 25 mg/dL (8-22); CALCIUM 9.1 mg/dL (8.8-10.2); CHLORIDE 99 mmol/L (98-107); COSMO 286; ESTIMATED GFR > 60; GLUCOSE 104 mg/dL (70-104); POTASSIUM 4.2 mmol/L (3.5-5.1); SODIUM 141 mmol/L (136-145); TCO2 34 mmol/L (25-35)
[2020-01-09] MEDS: PRINIVIL PO SCH ×2 (08:21→20:25)
[2020-01-09] MEDS: MIRALAX PO SCH ×2 (08:21→20:25)
[2020-01-09] MEDS: COREG PO SCH ×2 (08:21→20:25)
[2020-01-09] MEDS: FLOMAX PO SCH (08:21)
[2020-01-09] MEDS: DULCOLAX PR SCH ×2 (08:22→21:03)
--- NOTE | 2020-01-09 15:50 | PROGRESS NOTE ---
DATE: 01/09/2020 SUBJECTIVE: No big changes compared with yesterday. His urine output is good. It has been more than 13 L negative balance. His urine is clear. No more hematuria. OBJECTIVE: Vital Signs: Temperature 98.5 degrees, pulse 91, respiratory rate 18, blood pressure 106/74, oxygen saturation 90 on room air. HEENT: Head normocephalic. No trauma. PERRLA. Neck: Supple. He does have mild JVD. Central trachea. Chest: Some crepitus at the bases. Prolonged expiratory phase. Abdomen: Soft. Abdominal wall edema but much better. Tenderness to palpation at the level of the lower abdomen. Extremities: 2 to 3+ lower extremity edema all the way up to the thigh. No clubbing, no cyanosis. Neurological: The patient is awake. He is alert, he is oriented x3. No focal deficits. LABORATORY DATA: Sodium 141, potassium 4.2, chloride 99, bicarbonate 34, BUN 25, creatinine 1, glucose 104, calcium 9.1. ASSESSMENT AND PLAN: 1. Systolic congestive heart failure exacerbation. His ejection fraction is around 35%. Also has pulmonary hypertension so probably this is a combined heart failure. Cardiology Department on board, continue with same management. He seems to be improving a lot. 2. Possible chronic obstructive pulmonary disease. As per the patient and the family, he has never been diagnosed with chronic obstructive pulmonary disease before, but he has a strong history of smoking. He will need to follow up with Pulmonary Department to get a pulmonary function test as an outpatient. 3. Hypertension. Stable. 4. Constipation. Continue with same management. 5. Tobacco abuse. Apparently he stopped smoking 2 years ago, but he smoked 1 pack a day for 60 years. 6. Urinary retention status post Dodeg catheter placement. Probably at some point of this hospitalization, I will remove the Dodge catheter to see if he is able to void by himself. We will check a residual urine in the bladder and if this is high, I will put the Dodge catheter in again, and I will send him home, but he will need to follow up with Urology as an outpatient. cc: Saul Duran MD
[2020-01-09] MEDS: LEVAQUIN 250 MG/D5W 250 MG/50 ML IVPB IV SCH (21:06)
[2020-01-10] MEDS: DUONEB (A & A) INH SCH ×5 (03:20→23:40)
[2020-01-10] MEDS: LASIX IV SCH ×2 (04:23→17:19)
[2020-01-10 08:31] LABS: AGAP 12; BUN 22 mg/dL (8-22); CALCIUM 8.8 mg/dL (8.8-10.2); CHLORIDE 95 mmol/L (98-107); COSMO 279; ESTIMATED GFR > 60; GLUCOSE 103 mg/dL (70-104); POTASSIUM 4.1 mmol/L (3.5-5.1); SODIUM 138 mmol/L (136-145); TCO2 31 mmol/L (25-35)
[2020-01-10] MEDS: DULCOLAX PR SCH ×2 (10:49→21:54)
[2020-01-10] MEDS: PRINIVIL PO SCH ×2 (10:50→21:46)
[2020-01-10] MEDS: COREG PO SCH ×2 (10:50→21:46)
[2020-01-10] MEDS: MIRALAX PO SCH ×2 (10:50→21:46)
[2020-01-10] MEDS: FLOMAX PO SCH (10:50)
--- NOTE | 2020-01-10 12:34 | PROGRESS NOTE ---
DATE: 01/10/2020 SUBJECTIVE: The patient seems to be doing better today. I will remove the Dodge catheter to see if he is able to void by himself. If he is not able to void by himself I will go ahead and put it back in and he will need to follow up with Urology Department as an outpatient. OBJECTIVE: Vital Signs: Temperature 98.2 degrees, pulse 84, respiratory rate 18, blood pressure 105/71, oxygen saturation 98 on 2 L of nasal cannula. HEENT: Head normocephalic, no trauma. PERRLA. Neck: Supple. No JVD. No masses. Central trachea. Chest: He has some crepitus at the bases. Prolonged expiratory phase. Abdomen: Soft, nontender, nondistended. No hepatosplenomegaly. Abdominal wall edema is basically gone. Extremities: 2 to 3+ lower extremity edema. No clubbing. No cyanosis. Neurological: The patient is awake, alert, he is oriented x3. No focal deficits. LABORATORY: Sodium 138, potassium 4.1, chloride 95, bicarbonate 31, BUN 22, creatinine 1, glucose 103, calcium 8.8. ASSESSMENT AND PLAN: 1. Systolic congestive heart failure exacerbation. His ejection fraction is 35%. Also has pulmonary hypertension, so probably this is a combined heart failure exacerbation. Cardiology Department on board. Continue with same management. He seems to be improving a lot. 2. Possible chronic obstructive pulmonary disease. He has never been diagnosed with chronic obstructive pulmonary disease. He should follow up with Pulmonary Department as an outpatient to get a pulmonary function test. He stopped smoking a long time ago. 3. Hypertension, stable. 4. Constipation. Continue with same management. 5. Tobacco abuse. This patient stopped smoking 2 years ago, but he used to smoke 1 pack a day for 60 years. 6. Urinary retention, status post Dodge catheter placement. I will remove the Dodge catheter today to see how he does. He has been on tamsulosin for a little bit. I will recheck the postvoid residual. If this is high, I will put the Dodge catheter back in and he will need to follow up with Urology Department as an outpatient. I do believe this patient can go home in the next 24 to 48 hours if Cardiology Department is okay. cc: Saul Duran MD
[2020-01-10] MEDS ORDERED: XYLOCAINE 2% JELLY UROJECT TOP ONE (20:24)
[2020-01-10] MEDS: LOVENOX SUBQ SCH (21:47)
[2020-01-10] MEDS: LEVAQUIN 250 MG/D5W 250 MG/50 ML IVPB IV SCH (22:00)
[2020-01-10 23:42] LABS: URINE SOURCE CATH
[2020-01-10 23:43] LABS: BILIRUBIN URINE NEGATIVE (NEGATIVE); BLOOD URINE MODERATE (NEGATIVE); COLOR YELLOW; GLUCOSE URINE NEGATIVE (NEGATIVE); KETONE URINE NEGATIVE (NEGATIVE); LEUKOCYTES URINE NEGATIVE (NEGATIVE); NITRITE URINE NEGATIVE (NEGATIVE); PROTEIN URINE NEGATIVE (NEGATIVE); SP GRAVITY URINE 1.013; TURBIDITY URINE CLEAR (CLEAR); UROBILINOGEN URINE NORMAL (NORMAL)
[2020-01-10 23:47] LABS: UR EPITHELIAL CELLS <10 /HPF (<10); URINE BACTERIA NEGATIVE /HPF; URINE RBC TNTC /HPF (<10); URINE WBC <10 /HPF (<10)
[2020-01-11 00:28] LABS: URINE CASTS NONE SEEN; URINE CRYSTALS NONE SEEN; URINE SMALL ROUND CELLS NONE SEEN; URINE YEAST NONE SEEN
--- NOTE | 2020-01-11 01:11 | EKG Report ---
Test Performed on : 01/11/2020 00:59:50 AM Test Reason : 35 beat run of v-tach per telemetry Blood Pressure : / mmHG Vent. Rate : 114 BPM Atrial Rate : 114 BPM P-R Int : 178 ms QRS Dur : 106 ms QT Int : 354 ms P-R-T Axes : 074 080 256 degrees QTc Int : 487 ms Sinus tachycardia. Incomplete left bundle branch block Left ventricular hypertrophy with repolarization abnormality Abnormal ECG When compared with ECG of 06-JAN-2020 14:00, premature atrial complexes. are no longer present Confirmed by Maximiliano Ibrahim MD ([id number]) on 01/11/2020 7:38:02 PM
[2020-01-11 03:19] LABS: AGAP 13; BUN 28 mg/dL (8-22); CALCIUM 9.1 mg/dL (8.8-10.2); CHLORIDE 97 mmol/L (98-107); CK PROFILE 88 U/L (24-204); COSMO 287; CREATININE 1.2 mg/dL (0.7-1.2); ESTIMATED GFR > 60; GLUCOSE 143 mg/dL (70-104); POTASSIUM 4.2 mmol/L (3.5-5.1); SODIUM 140 mmol/L (136-145); TCO2 30 mmol/L (25-35)
[2020-01-11] MEDS: DUONEB (A & A) INH SCH ×6 (04:49→22:32)
[2020-01-11] MEDS: LASIX IV SCH ×2 (05:58→16:10)
[2020-01-11 08:26] LABS: AGAP 14; BUN 27 mg/dL (8-22); CALCIUM 9.2 mg/dL (8.8-10.2); CHLORIDE 96 mmol/L (98-107); COSMO 281; ESTIMATED GFR > 60; GLUCOSE 105 mg/dL (70-104); POTASSIUM 4.2 mmol/L (3.5-5.1); SODIUM 138 mmol/L (136-145); TCO2 28 mmol/L (25-35)
[2020-01-11] MEDS: DULCOLAX PR SCH ×2 (10:27→21:06)
[2020-01-11] MEDS: MIRALAX PO SCH ×2 (10:28→21:07)
[2020-01-11] MEDS: COREG PO SCH ×2 (10:28→21:06)
[2020-01-11] MEDS: PRINIVIL PO SCH ×2 (10:28→21:07)
[2020-01-11] MEDS: FLOMAX PO SCH (10:28)
--- NOTE | 2020-01-11 13:24 | PROGRESS NOTE ---
DATE: 01/11/2020 SUBJECTIVE: The patient is doing better. I removed the Dodge catheter yesterday, but he was not able to void, so he will need to follow up with Urology as an outpatient. We have placed a new Dodge catheter today. OBJECTIVE: Vital Signs: Temperature 97.8 degrees, pulse 89, respiratory rate 16, blood pressure 108/70, oxygen saturation 100% on 2 L of nasal cannula. HEENT: Head normocephalic. No trauma. PERRLA. Neck: Supple. No JVD. No masses. Central trachea. Chest: Crepitus at the bases. Prolonged expiratory phase. Abdomen: Soft, nontender, nondistended. No hepatosplenomegaly. Extremities: There is 2+ to 3+ lower extremity edema. No clubbing. No cyanosis. Neurological: The patient is awake and alert. He is oriented x3. No focal deficits. LABORATORY DATA: Sodium 138, potassium 4.2, chloride 96, bicarbonate 28, BUN 27, creatinine 1, glucose 105, calcium 9.2. ASSESSMENT AND PLAN: 1. Systolic congestive heart failure exacerbation. His ejection fraction is 35%. Also, he has pulmonary hypertension. Likely, this is a combined heart failure exacerbation. Cardiology Department on board. Continue with the same management. He seems to be improving a lot. Tomorrow, will discuss the case with Cardiology Department to see if this patient can go home. 2. Possible chronic obstructive pulmonary disease. He has never been diagnosed with chronic obstructive pulmonary disease. He should follow with Pulmonary Department as an outpatient to get pulmonary function test. He stopped smoking a long time ago. 3. Hypertension, stable. 4. Constipation. He had a bowel movement a couple of days ago. I will monitor for now. 5. Tobacco abuse. This patient stopped smoking 2 years ago, but he used to smoke 1 pack a day for 60 years. 6. Urinary retention. I removed the Dodge catheter yesterday, but we put it back in because he was retaining. He will follow up with Urology Department as an outpatient. cc: Saul Duran MD
[2020-01-11] MEDS: LEVAQUIN 250 MG/D5W 250 MG/50 ML IVPB IV SCH (21:08)
[2020-01-11] MEDS: LOVENOX SUBQ SCH (21:13)
[2020-01-12] MEDS: DUONEB (A & A) INH SCH ×6 (03:48→22:29)
[2020-01-12] MEDS: LASIX IV SCH (05:06)
[2020-01-12 07:48] LABS: AGAP 12; BUN 28 mg/dL (8-22); CHLORIDE 95 mmol/L (98-107); COSMO 278; CREATININE 1.1 mg/dL (0.7-1.2); ESTIMATED GFR > 60; GLUCOSE 102 mg/dL (70-104); POTASSIUM 4.1 mmol/L (3.5-5.1); SODIUM 136 mmol/L (136-145); TCO2 29 mmol/L (25-35)
[2020-01-12] MEDS: COREG PO SCH ×2 (09:58→21:00)
[2020-01-12] MEDS: DULCOLAX PR SCH ×2 (09:58→21:00)
[2020-01-12] MEDS: FLOMAX PO SCH ×2 (09:58→21:00)
[2020-01-12] MEDS: PRINIVIL PO SCH ×2 (09:58→21:01)
[2020-01-12] MEDS: MIRALAX PO SCH ×2 (09:58→21:01)
--- NOTE | 2020-01-12 12:36 | CONSULTATION ---
DATE OF CONSULTATION: 01/12/2020 ATTENDING AND REFERRING PHYSICIAN: Hospitalist. CHIEF COMPLAINT: Hematuria. HISTORY OF PRESENT ILLNESS: This 84-year-old male was admitted with exacerbation of COPD and shortness of breath. He had a Dodge catheter placed to manage his medical problems on 01/04/2020. He states it was removed yesterday but he could not void. The Dodge catheter was returned and he states he started having hematuria. He states he has some spasms as well. The nurses state he has been pulling on his catheter as well. He states this has never occurred before. He denies any history of kidney stones. He has no problems with urinary tract infections. He has never had a kidney stone. He states that overall he was feeling better and would like to get out of the hospital. PAST MEDICAL HISTORY: 1. COPD. 2. Coronary artery disease. 3. Hypertension. CURRENT MEDICATIONS: Documented on the chart and include Flomax 0.4 mg a day. He states this was started when he was hospitalized. PAST SURGICAL HISTORY: 1. Gastric ulcer surgery. 2. Back surgery x2. SOCIAL HISTORY: Cigarettes 1 to 2 packs a day for over 50 years. He is trying to cut back and just smokes occasionally now. No alcohol use. ALLERGIES: No known drug allergies. REVIEW OF SYSTEMS: He denies any problems with diabetes, strokes, seizures, or recent bowel problems. PHYSICAL EXAMINATION: General: A normally developed, well-nourished, age apparent, black male, oriented and cooperative. HEENT: Normal for age. Lungs: Clear. Cardiovascular: Regular rate and rhythm. Abdomen: Well-healed epigastric area scar. No hepatosplenomegaly or masses. Normal bowel sounds. Nontender with palpation. Back: Well-healed lower midline scar. No CVA tenderness. : Uncircumcised male. 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 Pump control in the scrotum in the right side. He states the right testicle was removed. No inguinal hernias. Foreskin retracts. Prosthesis in normal position in the corpora. Rectal: Normal sphincter tone. Prostate around 40 g, smooth and symmetric. Extremities: No clubbing, cyanosis, or edema. Neurologic: No focal deficits. LABORATORY EVALUATION: From the 06 of January, has a white count of 7.75, hemoglobin 13, hematocrit of 40.5, and platelets are 11.9. His serum electrolytes today were normal. BUN 28, creatinine 1.1. A urinalysis from the 09 of January had too numerous to count red cells, no bacteria. This was from his Dodge catheter. IMPRESSION: 1. Hematuria, question Dodge catheter trauma. 2. Enlarged prostate with obstructive voiding. 3. Urinary retention. Recommend increased Flomax 0.4 mg b.i.d. Irrigate Dodge catheter until urine output is clear. 4. He will probably have to go home with his Dodge catheter and would do voiding trials in the office. Thank you for this consultation. cc: Gil Mitchell MD
--- NOTE | 2020-01-12 13:14 | PROGRESS NOTE ---
DATE: 01/12/2020 SUBJECTIVE: This patient is complaining today of some abdominal discomfort. I will stop the IV Lasix and I will put him on p.o. treatment. He seems to be doing fine. We removed around 19 L of fluid so far. He does have urinary retention. He has traumatic hematuria when we tried to place the Dodge catheter for the second time. OBJECTIVE: Vital Signs: Temperature 98.6 degrees, pulse 86, respiratory rate 18, blood pressure 101/87, oxygen saturation 96 on 2 L of nasal cannula. HEENT: Head normocephalic, no trauma. PERRLA. Neck: Supple. No JVD. No masses. Central trachea. Chest: Crepitus at the bases. Prolonged expiratory phase. Abdomen: Soft, nontender, nondistended. No hepatosplenomegaly. Extremities: There is 1+ to 2+ lower extremity edema. No clubbing. No cyanosis. Neurological examination: The patient is awake, alert. He is oriented x3. No focal deficits. LABORATORY: Sodium 136, potassium 4.1, chloride 95, bicarbonate 29. BUN 28, creatinine 1.1, glucose 102, calcium 9. ASSESSMENT AND PLAN: 1. Systolic congestive heart failure exacerbation. Ejection fraction is around 35%. Also, he has pulmonary hypertension. Likely this is a combined heart failure. Cardiology Department on board. I have decreased the dose of the Lasix from twice a day to once a day, and I switched it from intravenous to oral. 2. Possible chronic obstructive pulmonary disease. He never has been diagnosed with chronic obstructive pulmonary disease. He should follow up with Pulmonary Department as an outpatient to get a pulmonary function test. He stopped smoking a couple years ago. 3. Hypertension, resolved. 4. Constipation. He had a bowel movement today. 5. Tobacco abuse. This patient has been advised against tobacco use. Apparently, he smoked for about 60 years one pack a day, but he stopped 2 years ago. 6. Urinary retention with traumatic hematuria. I have requested evaluation by Urology Department. I will continue with the Dodge catheter and monitor. Hopefully, this patient can be discharged tomorrow. I already discussed the case with Cardiology Department, for now will monitor. He seems to be tolerating oral and doing well. Like I said, probably tomorrow he will be discharged home once Urology Department sees the patient. cc: Saul Duran MD
--- NOTE | 2020-01-12 14:33 | PROGRESS NOTE ---
DATE: 01/12/2020 SUBJECTIVE: Patient denies shortness of breath or chest discomfort. He relates some fatigue. OBJECTIVE: Blood pressure 101/87, heart rate 91, oxygen saturation 99% on nasal cannula oxygen at 2 L/minute. Jugular venous pressure appears to be normal based on inspection neck veins.Chest: Clear to auscultation bilaterally. Cardiac: Reveals a regular rate and rhythm without appreciable murmur or gallop. Extremities: Without edema. LABORATORY DATA: Includes a sodium 136, potassium 4.1, chloride 95, carbon dioxide 29, BUN 28, creatinine 1.1, glucose 102. IMPRESSION: 1. Acute on probably chronic congestive heart failure predominantly right-sided. Patient has improved considerably with diuresis. 2. Cardiomyopathy with severe left hypertrophy and left ejection fraction of 30%. Suspect combination of being systolic and diastolic dysfunction left ventricle. 3. Chronic obstructive pulmonary disease. RECOMMENDATIONS: 1. Continue current cardiovascular regimen and Lasix 40 mg p.o. daily. 2. Given clinical improvement, it is reasonable for patient to be discharged soon. I will be glad to see him for further followup in approximately 2 weeks. cc: Gil Higgins MD
[2020-01-12] MEDS: ULTRAM PO PRN (16:02)
[2020-01-12] MEDS ORDERED: LASIX PO SCH (21:00)
[2020-01-12] MEDS: LEVAQUIN 250 MG/D5W 250 MG/50 ML IVPB IV SCH (21:01)
[2020-01-12] MEDS: LOVENOX SUBQ SCH (21:01)
[2020-01-13] MEDS: DUONEB (A & A) INH SCH ×6 (03:56→22:55)
[2020-01-13] MEDS: ULTRAM PO PRN (05:11)
[2020-01-13 07:20] LABS: BASO# 0.01 X1000 (0.0-0.2); BASO% 0.1 % (0.0-0.8); EOS# 0.03 X1000 (0.0-0.7); EOS% 0.3 % (0.0-10.0); HEMATOCRIT 48.2 % (42.0-52.0); HEMOGLOBIN 15.1 g/dL (14.0-18.0); IMM GRAN# 0.02 X1000 (0.0-0.04); IMM GRAN% 0.2 % (0.0-0.5); LYMPH# 1.93 X1000 (1.2-3.4); LYMPH% 17.3 % (20.5-51.1); MCH 27.7 PG (27-31); MCHC 31.3 g/dL (33-37); MCV 88.3 FL (81-99); MONO# 1.22 X1000 (0.11-0.59); MONO% 10.9 % (1.7-9.3); MPV 11.4 FL (7.4-10.4); NEUT# 7.97 X1000 (1.4-6.5); NEUT% 71.2 % (42.2-75.2); PLT 162 X1000 (130-400); RBC 5.46 XMIL (4.7-6.1); WBC 11.18 X1000 (4.8-10.8)
[2020-01-13] MEDS ORDERED: XYLOCAINE 2% JELLY UROJECT TOP ONE ×2 (07:34→11:41)
[2020-01-13 07:51] LABS: AGAP 14; BUN 33 mg/dL (8-22); CALCIUM 9.2 mg/dL (8.8-10.2); CHLORIDE 99 mmol/L (98-107); COSMO 288; CREATININE 1.1 mg/dL (0.7-1.2); ESTIMATED GFR > 60; GLUCOSE 117 mg/dL (70-104); POTASSIUM 4.5 mmol/L (3.5-5.1); SODIUM 140 mmol/L (136-145); TCO2 27 mmol/L (25-35)
[2020-01-13] MEDS: COREG PO SCH ×2 (08:39→20:06)
[2020-01-13] MEDS: DULCOLAX PR SCH ×2 (08:39→20:06)
[2020-01-13] MEDS: MIRALAX PO SCH ×2 (08:40→20:12)
[2020-01-13] MEDS: FLOMAX PO SCH ×2 (08:40→20:12)
[2020-01-13] MEDS: PRINIVIL PO SCH ×2 (08:40→20:06)
[2020-01-13] MEDS: LASIX PO SCH (08:40)
--- NOTE | 2020-01-13 14:45 | PROGRESS NOTE ---
DATE: 01/13/2020 SUBJECTIVE: This patient is having gross hematuria. Cardiac ragland he seems to be stable. His CHF seems to be better controlled. Once his hematuria is better and Urology department states that he can go, I will discharge this patient home with strict followup with Cardiology and Urology. OBJECTIVE: Vital Signs: Temperature 97.9 degrees, pulse 66, respiratory rate 19, blood pressure 121/65. Oxygen saturation 97% on 2 L of nasal cannula. HEENT: Head normocephalic. No trauma. PERRLA. Neck: Supple. No JVD. No masses. Central trachea. Chest: Crepitus at the bases. Prolonged expiratory phase. Abdomen: Soft, nontender, nondistended. No hepatosplenomegaly. Extremities: There is 1+ lower extremity edema. No clubbing. No cyanosis. Neurological: The patient is awake, alert. He is oriented x3. No focal deficits. Genitourinary: He has a Dodge catheter and he has gross hematuria. LABORATORY: WBC 11.1, hemoglobin 15.1, hematocrit 48.2, platelet 162,000. Sodium 140, potassium 4.5, chloride 99, bicarbonate 27, BUN 33, creatinine 1.1, glucose 117, calcium 9.2. ASSESSMENT AND PLAN: 1. Systolic congestive heart failure exacerbation, ejection fraction around 35%. Also, pulmonary hypertension, likely this is a combined heart failure. Cardiology department already evaluated this patient. Continue with Lasix and the rest of the medications. He seems to be stable cardiac-ragland. 2. Possible chronic obstructive pulmonary disease. This patient has never been diagnosed with chronic obstructive pulmonary disease but he used to be a heavy smoker. He stopped smoking a couple years ago, but he smoked for 60 years. 3. Gross hematuria, this patient likely has benign prostatic hypertrophy, Urology department already evaluated this patient. We will follow their recommendations. 4. Hypertension, resolved. 5. Constipation, continue with the same management. 6. Tobacco abuse. I mentioned before that this patient used to smoke for 60 years a pack a day but he stopped 2 years ago. 7. Urinary retention with hematuria. Like I mentioned before, Urology department on board. We will follow their recommendations. cc: Saul Duran MD
[2020-01-13] MEDS: LEVAQUIN 250 MG/D5W 250 MG/50 ML IVPB IV SCH (23:52)
[2020-01-13] MEDS: LOVENOX SUBQ SCH (23:53)
[2020-01-14] MEDS: DITROPAN PO PRN ×3 (00:10→20:40)
[2020-01-14] MEDS: DUONEB (A & A) INH SCH ×6 (05:46→23:05)
[2020-01-14 07:44] LABS: HEMATOCRIT 45.8 % (42.0-52.0); HEMOGLOBIN 14.3 g/dL (14.0-18.0)
[2020-01-14 07:57] LABS: AGAP 8; BUN 41 mg/dL (8-22); CALCIUM 9.2 mg/dL (8.8-10.2); CHLORIDE 98 mmol/L (98-107); COSMO 285; CREATININE 1.1 mg/dL (0.7-1.2); ESTIMATED GFR > 60; GLUCOSE 118 mg/dL (70-104); POTASSIUM 4.5 mmol/L (3.5-5.1); SODIUM 137 mmol/L (136-145); TCO2 31 mmol/L (25-35)
[2020-01-14] MEDS: LASIX PO SCH (08:14)
[2020-01-14] MEDS: FLOMAX PO SCH ×2 (08:14→20:40)
[2020-01-14] MEDS: MIRALAX PO SCH ×2 (08:14→20:40)
[2020-01-14] MEDS: PRINIVIL PO SCH ×2 (08:15→20:40)
[2020-01-14] MEDS: COREG PO SCH ×2 (08:15→20:40)
[2020-01-14] MEDS: DULCOLAX PR SCH ×2 (08:15→20:40)
[2020-01-14] MEDS: ULTRAM PO PRN ×2 (09:18→22:12)
[2020-01-14] MEDS ORDERED: XYLOCAINE 2% JELLY UROJECT TOP ONE (10:08)
--- NOTE | 2020-01-14 16:12 | PROGRESS NOTE ---
DATE: 01/14/2020 SUBJECTIVE: This patient is still having gross hematuria. Dr. Mitchell from Urology Department has placed a new Dodge catheter, and he will be on continuous bladder irrigation, his CHF seems to be controlled. I will continue with the same treatment. OBJECTIVE: Vital Signs: Temperature 98 degrees, pulse 97, respiratory rate 20, blood pressure 107/77. Oxygen saturation 100% on 2 L of nasal cannula. HEENT: Head normocephalic. No trauma. PERRLA. Neck: Supple. No JVD. No masses. Central trachea. Chest: Crepitus at the bases. Prolonged expiratory phase. Abdomen: Soft, nontender, nondistended. No hepatosplenomegaly. Extremities: 1+ lower extremity edema. No clubbing. No cyanosis. Neurological: The patient is awake, alert. He is oriented x3. No focal deficits. Genitourinary: He has a new Dodge catheter. He has gross hematuria and he is getting bladder irrigation. LABORATORY: Hemoglobin 14.3, hematocrit 45.8. Sodium 137, potassium 4.5, chloride 98, bicarbonate 31, BUN 41, creatinine 1.1, glucose 118, calcium 9.2. ASSESSMENT AND PLAN: 1. Systolic congestive heart failure exacerbation, ejection fraction around 35%. Also, pulmonary hypertension. Likely this is a combined heart failure exacerbation. Cardiology department already evaluated this patient. Continue with same management for now. He seems to be stable. 2. Possible chronic obstructive pulmonary disease, not in exacerbation but he used to be a heavy smoker for at least 60 years and he used to smoke 1 pack a day. He stopped smoking 2 years ago. 3. Gross hematuria, likely due to benign prostatic hypertrophy. Urology department has placed a new Dodge catheter and he will be on bladder irrigation. 4. Hypertension, resolved. 5. Constipation. Continue with same management. 6. Tobacco abuse, he already stopped smoking 2 years ago. 7. Urinary retention, now he is using a Dodge catheter. cc: Saul Duran MD
[2020-01-14] MEDS: LEVAQUIN 250 MG/D5W 250 MG/50 ML IVPB IV SCH (22:50)
[2020-01-15] MEDS: DUONEB (A & A) INH SCH ×6 (05:06→23:05)
[2020-01-15 07:51] LABS: HEMATOCRIT 40.9 % (42.0-52.0)
[2020-01-15 08:12] LABS: AGAP 8; BUN 37 mg/dL (8-22); CALCIUM 9.2 mg/dL (8.8-10.2); CHLORIDE 98 mmol/L (98-107); COSMO 283; CREATININE 1.1 mg/dL (0.7-1.2); ESTIMATED GFR > 60; GLUCOSE 104 mg/dL (70-104); POTASSIUM 4.6 mmol/L (3.5-5.1); SODIUM 137 mmol/L (136-145); TCO2 31 mmol/L (25-35)
[2020-01-15] MEDS: COREG PO SCH ×2 (09:00→20:27)
[2020-01-15] MEDS: MIRALAX PO SCH ×2 (09:00→20:27)
[2020-01-15] MEDS: PRINIVIL PO SCH ×2 (09:00→20:27)
[2020-01-15] MEDS: LASIX PO SCH (09:00)
[2020-01-15] MEDS: FLOMAX PO SCH ×2 (09:00→20:27)
[2020-01-15] MEDS: DULCOLAX PR SCH ×2 (09:00→20:27)
[2020-01-15] MEDS ORDERED: MORPHINE IV ONE (11:45)
--- NOTE | 2020-01-15 16:15 | PROGRESS NOTE ---
DATE: 01/15/2020 SUBJECTIVE: The patient will be n.p.o. after midnight and Dr. Mitchell will take him probably to the OR tomorrow to check his hematuria. This instruction has been given to the nurse. He initially was admitted due to CHF exacerbation, new onset, and likely COPD as well. That is much better. Once the hematuria is resolved and/or better, he can be discharged home. OBJECTIVE: Vital Signs: Temperature 97.8 degrees, pulse 73, respiratory rate 18, blood pressure 156/103, oxygen saturation 95% on room air. HEENT: Head normocephalic, no trauma. PERRLA. Neck: Supple. No JVD. No masses. Central trachea. Chest: Crepitus at the bases. Prolonged expiratory phase. Abdomen: Soft, nontender, nondistended. No hepatosplenomegaly. Extremities: Trace lower extremity edema. No clubbing. No cyanosis. Neurological: The patient is awake. He is alert. He is oriented x3. No focal deficits. Genitourinary: He has a Dodge catheter with gross hematuria and some clots. LABORATORY: Showed a hemoglobin 13, hematocrit 40.9. Sodium 137, potassium 4.6, chloride 98, bicarbonate 31, BUN 37, creatinine 1.1, glucose 104, calcium 9.2. ASSESSMENT AND PLAN: 1. Systolic congestive heart failure exacerbation, ejection fraction around 35%. Also pulmonary hypertension so likely this is a combined heart failure exacerbation, cardiology department already evaluated this patient. Continue with same management for now. He seems to be stable continue with same management. 2. Possible chronic obstructive pulmonary disease, not in exacerbation at this moment but he used to be a heavy smoker for at least 60 years. He used to smoke 1 pack a day and he stopped smoking 2 years ago. 3. Gross hematuria. It looks like this patient will be n.p.o. after midnight and they will do a cystoscopic exam tomorrow to see the cause of the bleeding. This information has been provided by the nurse. 4. Hypertension, resolved. 5. Constipation. Continue with same management. 6. Tobacco abuse. This patient already stopped smoking 2 years ago. 7. Urinary retention, now he is using a Dodge catheter and he has some hematuria. cc: Salu Duran MD
[2020-01-15] MEDS: ULTRAM PO PRN (20:27)
[2020-01-15] MEDS: MORPHINE IV PRN (21:49)
[2020-01-15] MEDS: LEVAQUIN 250 MG/D5W 250 MG/50 ML IVPB IV SCH (21:49)
[2020-01-16] MEDS: MORPHINE IV PRN ×4 (04:41→21:16)
[2020-01-16] MEDS: DUONEB (A & A) INH SCH ×7 (05:25→23:26)
[2020-01-16] MEDS ORDERED: AMIDATE ONE (06:11)
[2020-01-16] MEDS ORDERED: XYLOCAINE-MPF 2% ONE (06:11)
[2020-01-16] MEDS ORDERED: FENTANYL ONE (06:11)
[2020-01-16] MEDS: DULCOLAX PR SCH ×2 (09:12→21:16)
[2020-01-16] MEDS: COREG PO SCH ×2 (09:13→21:15)
[2020-01-16] MEDS: PRINIVIL PO SCH ×2 (09:13→21:15)
[2020-01-16] MEDS: FLOMAX PO SCH ×2 (09:13→21:15)
[2020-01-16] MEDS: LASIX PO SCH (09:13)
[2020-01-16] MEDS: MIRALAX PO SCH ×2 (09:13→21:15)
[2020-01-16 10:53] LABS: HEMATOCRIT 43.4 % (42.0-52.0); HEMOGLOBIN 13.7 g/dL (14.0-18.0)
[2020-01-16 11:34] LABS: AGAP 9; BUN 37 mg/dL (8-22); CALCIUM 8.8 mg/dL (8.8-10.2); CHLORIDE 100 mmol/L (98-107); COSMO 287; CREATININE 1.1 mg/dL (0.7-1.2); ESTIMATED GFR > 60; GLUCOSE 116 mg/dL (70-104); POTASSIUM 4.4 mmol/L (3.5-5.1); SODIUM 139 mmol/L (136-145); TCO2 30 mmol/L (25-35)
--- NOTE | 2020-01-16 14:09 | PROGRESS NOTE ---
DATE: 01/16/2020 SUBJECTIVE: Patient reports feeling fine. He had a procedure performed by Dr. Mitchell and he is connected to a bladder irrigation. OBJECTIVE: Vital Signs: Temperature 97.9 degrees, heart rate 110, respiratory rate 16, blood pressure 143/96, O2 saturation 100% on 2 L nasal cannula. General: This is a chronically ill appearing, 84-year-old male, lying in bed, in no acute distress. Cardiovascular: S1, S2 heard. No murmurs, gallops, or rubs. Regular rate and rhythm. Respiratory: Minimal crackles noted in both bases. Patient is not using any accessory muscles or having work of breathing. Abdomen: Soft, nontender to palpation. Bowel sounds present. No organomegaly. Extremities: No clubbing, cyanosis, or edema. Peripheral pulses present in all legs. Genitourinary: Patient has a Dodge catheter connected to continuous bladder irrigation. Neurological: Patient alert and oriented x3. Moves four extremities. LABORATORY DATA: Hemoglobin 13.3, hematocrit 43.4. Normal BMP. ASSESSMENT AND PLAN: 1. Systolic congestive heart failure with ejection fraction around 35%. Clinically patient is okay, not requiring any important oxygen supplementation so we will continue to monitor this patient closely. 2. Possible chronic obstructive pulmonary disease not in exacerbation. The patient has been a longstanding smoker. We will continue to monitor. 3. Gross hematuria. Patient has had a cystoscopy and he was left with a Dodge catheter. Continue his bladder irrigation. So we will continue to follow recommendations from Dr. Mitchell. 4. Disposition. At this point, this patient is going to be kept in the hospital until cleared by Urology. Patient reports that he has been able to walk around, so most likely he may need to go to home with home health. cc: Endy Nielson MD
[2020-01-16] MEDS: ULTRAM PO PRN (19:08)
--- NOTE | 2020-01-16 19:24 | OPERATIVE NOTE ---
PROCEDURE DATE: 01/16/2020 SURGEON: Gil Mitchell MD. PREOPERATIVE DIAGNOSIS: Clot retention secondary to Dodge catheter trauma. POSTOPERATIVE DIAGNOSIS: Clot retention secondary to Dodge catheter trauma. PROCEDURE PERFORMED: Cystoscopic exam, clot irrigation, cauterize bleeding areas. ANESTHESIA: General via laryngeal mask. FINDINGS: Cystoscopic exam: Urethra-greater than 21 Upper Sorbian without stricture. Prostate-coapting lateral lobes, elevated bladder neck, length 5 cm. Bladder-normal ureteral orifices bilaterally. Multiple diverticula throughout, small clots in the diverticula that were irrigated free. No papillary lesions. Small bleeding areas around the bladder neck. Rectal exam revealed a prostate of about 80 g, smooth, and symmetric. INDICATION FOR PROCEDURE: This 84-year-old male had Dodge catheter trauma with resulting gross hematuria and clot retention. He has had a 3-way Dodge catheter in place with continuous bladder irrigation but continues with intermittent clot retention and spasm secondary to clot retention. The patient has been hand-irrigated multiple times at bedside but continues to bleed. DESCRIPTION OF PROCEDURE: After informed consent was obtained from the patient, him receiving IV antibiotics, he was taken the main OR cystoscopy room, placed in supine position. General anesthesia via laryngeal mask was achieved. He was then prepped and draped in the usual sterile fashion for cystoscopic exam. A 21-Upper Sorbian sheath cystoscope was passed through the patient's urethra, prostate, and into the bladder. He has an indwelling inflatable penile implant and that makes it difficult to get into the bladder but this was able to be done. The clots were irrigated from the bladder and findings are as noted above. The Bugbee electrode was placed and the bleeding areas at the bladder neck were cauterized. At completion, no bleeding areas were seen. The cystoscope was removed and a 22-Upper Sorbian silicone coude hematuria catheter was passed through the patient's urethra, prostate, and into the bladder. 40 mL of sterile water were placed in the Dodge balloon. Continuous bladder irrigation was started and the efflux was clear. Rectal exam was performed. He tolerated the procedure well. Estimated blood loss during the case was less than 5 mL. He was taken to the recovery room in good condition. cc: Gil Mitchell MD
[2020-01-16] MEDS: LEVAQUIN 250 MG/D5W 250 MG/50 ML IVPB IV SCH (21:19)
[2020-01-16] MEDS: DITROPAN PO PRN (22:25)
[2020-01-17] MEDS: MORPHINE IV PRN ×2 (01:21→08:57)
[2020-01-17] MEDS: ULTRAM PO PRN (03:04)
[2020-01-17] MEDS: DUONEB (A & A) INH SCH ×6 (03:25→23:12)
[2020-01-17] MEDS: DULCOLAX PR SCH ×2 (09:04→20:39)
[2020-01-17] MEDS: DITROPAN PO PRN ×3 (09:04→20:39)
[2020-01-17] MEDS: PRINIVIL PO SCH ×2 (09:04→20:39)
[2020-01-17] MEDS: FLOMAX PO SCH ×2 (09:04→20:39)
[2020-01-17] MEDS: LASIX PO SCH (09:05)
[2020-01-17] MEDS: MIRALAX PO SCH ×2 (09:05→20:39)
--- NOTE | 2020-01-17 09:33 | PROGRESS NOTE ---
DATE: 01/17/2020 SUBJECTIVE: Patient reports having some pain, so back pain. Denies any other complaint. OBJECTIVE: Vital Signs: Temperature 97.4 heart rate 88, respiratory rate 20, blood pressure 97/56, O2 97% on room air. General: This is a chronically ill-looking, 84-year-old, male, lying in bed, in no acute distress. Cardiovascular: S1, S2 heard. No murmurs, gallops, or rubs. Regular rate and rhythm. Respiratory: Minimal crackles and rhonchi noted in both bases. Patient not using any accessory muscles or having work of breathing. Abdomen: Soft, nontender to palpation. Bowel sounds present. Extremities: No clubbing, cyanosis or edema. Peripheral pulses present in both legs. Genitourinary: Patient has a Dodge catheter connected to continuous bladder irrigation and the urine is a little bit pink today. Neurological: Patient alert oriented x3. Moves 4 extremities. LABORATORY DATA: Reviewed. ASSESSMENT AND PLAN: 1. Systolic congestive heart failure with ejection fraction of 35%. Clinically, this patient is okay, now he is on room air. We will continue with the same management. 2. Possible chronic obstructive pulmonary disease exacerbation. The patient will continue to be on breathing treatments. We will continue to monitor 3. Gross hematuria. Patient had cystoscopy yesterday and he is on continuous bladder irrigation. Definitely urine looks better. We will continue to monitor. 4. Disposition. We will most likely keep this patient until next Sunday. cc: Endy Nielson MD
[2020-01-17] MEDS: LEVAQUIN 250 MG/D5W 250 MG/50 ML IVPB IV SCH ×2 (20:40→21:21)
[2020-01-18] MEDS: NORCO-7.5 PO PRN ×4 (02:21→20:09)
[2020-01-18] MEDS: DUONEB (A & A) INH SCH ×6 (04:04→23:45)
[2020-01-18] MEDS: MORPHINE IV PRN ×3 (04:49→16:41)
[2020-01-18] MEDS: DITROPAN PO PRN ×3 (04:49→22:24)
[2020-01-18] MEDS ORDERED: XYLOCAINE 2% JELLY UROJECT TOP ONE (06:27)
[2020-01-18 07:20] LABS: URINE SOURCE CATH
[2020-01-18 07:46] LABS: BILIRUBIN URINE NEGATIVE (NEGATIVE); BLOOD URINE LARGE (NEGATIVE); COLOR YELLOW; GLUCOSE URINE NEGATIVE (NEGATIVE); KETONE URINE NEGATIVE (NEGATIVE); LEUKOCYTES URINE SMALL (NEGATIVE); NITRITE URINE NEGATIVE (NEGATIVE); PROTEIN URINE 70 mg/dL (NEGATIVE); SP GRAVITY URINE 1.018; TURBIDITY URINE HAZY (CLEAR); UROBILINOGEN URINE NORMAL (NORMAL)
[2020-01-18 07:48] LABS: UR EPITHELIAL CELLS <10 /HPF (<10); URINE BACTERIA NEGATIVE /HPF; URINE RBC TNTC /HPF (<10)
[2020-01-18] MEDS: LASIX PO SCH (09:13)
[2020-01-18] MEDS: DULCOLAX PR SCH ×2 (09:13→20:08)
[2020-01-18] MEDS: PRINIVIL PO SCH ×2 (09:13→20:09)
[2020-01-18] MEDS: MIRALAX PO SCH ×2 (09:13→20:09)
[2020-01-18] MEDS: FLOMAX PO SCH ×2 (09:13→20:09)
--- NOTE | 2020-01-18 11:54 | PROGRESS NOTE ---
DATE: 01/18/2020 SUBJECTIVE: Patient reports feeling fine. As per nursing staff yesterday, after we removed the Dodge catheter, he was unable to void, so we ended up putting the Dodge catheter back this morning. Since then, he is feeling fine. OBJECTIVE: Vital Signs: Temperature 98.4 degrees, heart rate 96, respiratory 14, blood pressure 108/59, O2 saturation 96% on room air. General: This is a 89-year-old, male, lying in bed, in no acute distress. Cardiovascular: S1 and S2 heard. No murmurs, gallops, or rubs. Regular rate and rhythm. Respiratory: Clear bilaterally to auscultation. Chest with minimal crackles noted in both pulmonary bases. Patient not using any accessory muscles or having work of breathing. Abdomen: Soft. Nontender to palpation. Bowel sounds present. No organomegaly. Extremities: No clubbing, cyanosis, or edema. Peripheral pulses present in both legs. Genitourinary: Patient has a Dodge catheter connected to continuous bladder irrigation. Neurological: Patient is alert and oriented x3. Moves 4 extremities. LABORATORY DATA: Reviewed. ASSESSMENT AND PLAN: 1. Systolic congestive heart failure with ejection fraction of 35%. Clinically, the patient is okay and continues to be on room air. Will continue with Lasix. 2. Chronic obstructive pulmonary disease exacerbation. We will continue with breathing treatments as needed. 3. Gross hematuria. Patient has a cystoscopy and Dodge catheter was placed after the procedure. Unfortunately, this patient failed to void with the catheter, so we need to put the Dodge catheter back again and Dr. Doe of Urology will see him in the office in 1 to [address]. 4. Disposition. I think at this point, the patient is much more stable, so we will most likely discharge this patient home tomorrow morning. cc: Endy Nielson MD
[2020-01-19] MEDS: DUONEB (A & A) INH SCH ×3 (03:50→12:00)
[2020-01-19] MEDS: NORCO-7.5 PO PRN (07:40)
[2020-01-19 08:37] VITALS: BP 125/77
[2020-01-19] MEDS: FLOMAX PO SCH (09:07)
[2020-01-19] MEDS: PRINIVIL PO SCH (09:07)
[2020-01-19] MEDS: LASIX PO SCH (09:07)
[2020-01-19] MEDS: MIRALAX PO SCH (09:08)
[2020-01-19] MEDS: DULCOLAX PR SCH (09:08)
[2020-01-19] MEDS ORDERED: FLU VACCINE IM ONE (12:02)
[2020-01-19] MEDS ORDERED: PNEUMOVAX 23 IM ONE (12:03)
--- NOTE | 2020-01-27 12:51 | DISCHARGE SUMMARY ---
ADMISSION DATE: 01/04/2020 DISCHARGE DATE: 01/19/2020 DISCHARGE DIAGNOSES: 1. Chronic obstructive pulmonary disease exacerbation. 2. Congestive heart failure. 3. Community-acquired pneumonia. 4. Gross hematuria status post cystoscopy. PROCEDURES: 1. Chest x-ray done on admission showed cardiomegaly, COPD, and mild infiltrate in the posterior base of the chest, tiny right pleural effusion. 2. Echocardiogram Doppler showed mild to moderate mitral regurgitation with mild tricuspid regurgitation, with an estimated PA pressure of 40 mmHg, severe concentric left ventricular hypertrophy with estimated ejection fraction of 35%, moderate biatrial enlargement. 3. Cystoscopy, clot irrigation, and cauterizing bleeding areas, procedure performed by Dr. Mitchell from urology. HOSPITAL COURSE: This is an 84-year-old, male with a history of COPD who presented to the emergency department complaining of a 4 day history of having persistent shortness of breath. The patient states that during that time, he was having also lower extremity edema. He was not feeling good so that is the reason why he was admitted to the hospital. Here in the hospital, we found out that he has CHF so he was placed on Lasix. He was improving clinically. For pneumonia, he was placed on IV antibiotics broad-spectrum. He was doing okay, not spiking any fever. Lab- ragland, white cell count was completely normal. The patient started having, during this hospitalization, bloody urine so we consulted urology who finally needed to do a cystoscopy, exploration, with cauterization of bleeding areas. Patient was placed on continuous bladder irrigation. He was doing fine. After this bleeding resolved, the patient was recommended by urology to keep that Dodge catheter until he is seen in the next couple of weeks by urology. Patient is going to be discharged to rehab in a stable condition. DISCHARGE PHYSICAL EXAMINATION: Vital Signs: Temperature 98.2 degrees, heart rate 89, respiratory rate 20, blood pressure 125/77, O2 saturation 94% on room air. General Examination: This is a chronically ill-looking, 84-year-old, male, lying in bed, in no acute distress. Cardiovascular Examination: S1 and S2 heard. No murmurs, gallops, or rubs. Regular rate and rhythm. Respiratory Examination: Clear bilaterally to auscultation. No work of breathing or using accessory muscles. Abdomen: Soft, nontender to palpation. Bowel sounds present. No organomegaly. There is a Dodge catheter in place with clear urine. Extremities: No clubbing, cyanosis, or edema. Peripheral pulses present in both legs. Neurological Examination: The patient is alert and oriented x3. Moves 4 extremities. DISCHARGE DISPOSITION: Patient is going home with home health. FOLLOWUP: 1. Follow up with Dr. Mitchell in 2 weeks in the office. 2. Follow up with cardiology as already scheduled. 3. Follow up with his primary care physician in 2 weeks. LIST OF MEDICATIONS: 1. Furosemide 40 mg 1 tablet p.o. daily. 2. Lisinopril 10 mg 1 tablet p.o. b.i.d. 3. Ditropan 5 mg p.o. 3 times per day as needed. 4. Flomax 0.4 mg 1 tablet p.o. twice daily. 5. MiraLAX as needed for constipation. 6. Hollister 10 mg 1 tablet p.o. every 4 hours as needed for pain. DISCHARGE TIME: 40 minutes. cc: Endy Nielson MD
== END 2020-01-19 12:43 | disposition home health service (06) | DRG 264 ==
LOC: EDBD → ED 18:11 → 3N 21:39 → SUATTDRO 21:39
PROVIDERS: ATTEND Internal Medicine